=== PATIENT | male | born 1930 | race Caucasian/White ===

== ENCOUNTER 2018-12-05 19:33 | Inpatient (IN) | payer MEDICARE, OTHER ==
[~2018-12-05] VITALS: Ht 180.3 cm; Wt 97.5 kg
[2018-12-05 20:16] LABS: BASO % 0.3 % (0.0-2.0); GRAN # 3.9 (1.4-6.5); GRAN % 66.1 % (42.2-75.2); LYMPH # 1.1 (1.2-3.4); LYMPH % 19.1 % (20.0-51.0); MEAN CELL VOLUME 77 fl (80.0-100.0); MEAN CORPUSCULAR HGB CONC 30 g/dl (33.0-37.0); MEAN PLATELET VOLUME 8.5 fl (7.4-10.4); MONO # 0.6 (0.1-0.6); MONO % 10.1 % (1.7-9.3); PLATELET COUNT 323 K/mm3 (130-400); RED BLOOD COUNT 4.29 M/mm3 (4.20-5.60); REDCELL DISTRIBUTION WIDTH-CV 18.6 % (11.5-14.5)
[2018-12-05 20:25] LABS: HEMATOCRIT 33.2 % (42.0-52.0); HEMOGLOBIN 9.9 g/dl (13.5-18.0); MEAN CORPUSCULAR HEMOGLOBIN 23 pg (27.0-31.0)
[2018-12-05 20:31] LABS: INR 1.4 (0.8-3.0); PROTHROMBIN TIME 15.5 SECONDS (9.7-12.8)
[2018-12-05 20:35] LABS: ALANINE AMINOTRANSFERASE 20 U/L (21-72); ALBUMIN 3.2 gm/dL (3.5-5.0); ALKALINE PHOSPHATASE 137 U/L (50-136); ANION GAP 7 mmol/L (7-16); AST,SGOT 36 U/L (15-37); BILIRUBIN,TOTAL 0.5 mg/dL (0.0-1.0); BLOOD UREA NITROGEN 26 mg/dL (9-20); CALCIUM 8.8 mg/dL (8.4-10.2); CARBON DIOXIDE 23 mmol/L (22-30); CHLORIDE 106 mmol/L (98-107); CREATINE KINASE 83 U/L (55-170); CREATININE, serum 1.25 (0.66-1.25); GLUCOSE 109 mg/dL (74-106); LIPASE 97 U/L (23-300); POTASSIUM 4.5 mmol/L (3.4-5.0); SODIUM 136 mmol/L (137-145); TOTAL PROTEIN 7.3 gm/dL (6.4-8.2)
[2018-12-05 20:44] LABS: TROPONIN-I < 0.012 ng/mL (0.000-0.035)
[2018-12-05] MEDS ORDERED: ANORO IH (22:10)
[2018-12-05] MEDS ORDERED: HCTZ12.5TAB PO (22:10)
[2018-12-05] MEDS ORDERED: PRILOSEC 20MG20 MG PO (22:10)
[2018-12-05] MEDS ORDERED: MIRALAX PA17 GM/Dose PO (22:18)
[2018-12-05] MEDS ORDERED: HCTZ 25MG TAB25 MG PO (22:18)
[2018-12-05] MEDS ORDERED: MULTIPLE VITAMI1 CAP PO (22:19)
[2018-12-05] MEDS ORDERED: ZYPREXA15 MG PO (22:19)
[2018-12-05] MEDS ORDERED: CEPHALEXIN500 M1 PO (22:19)
[2018-12-05] MEDS ORDERED: KAPSPARGO SPRIN25 MG PO (22:21)
--- NOTE | 2018-12-05 23:30 | NUR ---
Pt arrived to room 319, transferred per stretcher by PACU staff. Pt sleepy but easy to wake, a&o c occasional confused statements. O2 4L per OM. INT patent. Daughters at bedside. Pt/da's oriented to room, unit policies et current POC. Questions invited et answered, all verbalize understanding. No needs at this time, will continue c admit process. Terri OTERO at bedside.
[2018-12-05] MEDS ORDERED: ARNUITY IH (23:53)
[2018-12-05] MEDS ORDERED: ASPIRIN 81M81 MG/TA2 PO (23:55)
[2018-12-05 23:56] LABS: ARTERIAL BLD GAS O2 SATURATION 93.4 % (92-100); ARTERIAL BLD GAS TCO2 CT 23.8; ARTERIAL BLOOD GAS BASE EXCESS -2.1 (-2-2); ARTERIAL BLOOD GAS HCO3 22.6 meq/L (22-26); ARTERIAL BLOOD GAS PCO2 38.8 mmHg (35-45); ARTERIAL BLOOD GAS PO2 72.3 mmHg (80-100); ARTERIAL BLOOD GAS pH 7.38 (7.35-7.45)
[2018-12-05] MEDS ORDERED: TOPROL XL 25MG25 MG PO (23:57)
[2018-12-06] MEDS ORDERED: TYLENOL SU650 MG/SUP RC (00:02)
[2018-12-06] MEDS ORDERED: DULCOLAX S10 MG/SUPP RC (00:03)
[2018-12-06] MEDS ORDERED: IMODIUM 2MG CAPS2 MG PO (00:04)
[2018-12-06] MEDS ORDERED: MILK OF MA400 MG/52 PO (00:04)
[2018-12-06] MEDS ORDERED: IPRATROPIUM BROM3 M1 IH (00:04)
[2018-12-06] MEDS ORDERED: TYLENOL 325MG325 MG PO (00:05)
[2018-12-06] MEDS ORDERED: ALMACONE 360 M360 ML PO (00:05)
[2018-12-06 00:55] VITALS: BP 142/63; PULSE 94
[2018-12-06 03:30] VITALS: BP 130/56; PULSE 98; TEMP 100.1
[2018-12-06 08:22] LABS: BASO % 0.2 % (0.0-2.0); GRAN # 7.3 (1.4-6.5); GRAN % 82.3 % (42.2-75.2); LYMPH # 0.9 (1.2-3.4); LYMPH % 10.6 % (20.0-51.0); MEAN CELL VOLUME 79 fl (80.0-100.0); MEAN CORPUSCULAR HGB CONC 30 g/dl (33.0-37.0); MONO # 0.5 (0.1-0.6); MONO % 5.5 % (1.7-9.3); PLATELET COUNT 297 K/mm3 (130-400); RED BLOOD COUNT 3.78 M/mm3 (4.20-5.60); REDCELL DISTRIBUTION WIDTH-CV 18.6 % (11.5-14.5)
[2018-12-06 08:24] LABS: HEMATOCRIT 29.8 % (42.0-52.0); HEMOGLOBIN 8.8 g/dl (13.5-18.0); MEAN CORPUSCULAR HEMOGLOBIN 23 pg (27.0-31.0)
[2018-12-06 08:41] LABS: ALBUMIN 2.8 gm/dL (3.5-5.0); BILIRUBIN,TOTAL 0.6 mg/dL (0.0-1.0); CALCIUM 8.4 mg/dL (8.4-10.2); CREATININE, serum 1.35 (0.66-1.25); POTASSIUM 4.6 mmol/L (3.4-5.0); TOTAL PROTEIN 6.3 gm/dL (6.4-8.2)
[2018-12-06 08:52] VITALS: BP 136/50; PULSE 78; TEMP 98.2
--- NOTE | 2018-12-06 10:06 | NUR ---
Pt resting in bed with daughter at bedside. Pt given am meds crushed with applesauce and apple juice with miralax. pt swallowed ok but later started to cough when asked pt to deep breathe. Pt only coughed a few times without any production noted. Pt alert but confused at times to place and time. Pt IV intact and no infiltration or redness. Pt BLE edema noted. Pt coccyx ulcer will have dressing change completed today. Pt has call light in reach and denies needs at this time. Pt to have nurse or aide at bedside with eating and drinking. ST saw pt this am with recommendations and will see again at lunch.
[2018-12-06 10:17] LABS: RETIC # 0.07 M/mm3 (0.02-0.16)
[2018-12-06 10:22] LABS: IRON,SERUM 31 ug/dL (35-150)
[2018-12-06 10:31] LABS: TOTAL IRON BINDING CAPACITY 299 ug/dL (261-462)
--- NOTE | 2018-12-06 10:40 | NUR ---
TITO fox met with the patient and the patients daughter, Daya, to discuss discharge planning. The patient lives in [place] alone but yesterday, 12/05, was admitted to [facility] for a skilled stay. The patients daughter reports that she was not happy with the care at [facility] and would prefer [facility]. TITO fox presented and explained the patient choice form. The patients daughter chose [facility]. She did not have a second preference at this time. The patient choice form was signed by daughter and she was provided a copy. TITO contacted and faxed a referral to [facility]. TITO awaiting their screening. TITO to update [facility] and continue to follow.
[2018-12-06 10:58] LABS: FERRITIN 25 ng/mL (18-464)
[2018-12-06 11:18] VITALS: BP 119/52; PULSE 78; TEMP 98.2
--- NOTE | 2018-12-06 12:12 | NUR ---
Initial visit; Patient thanked [employer] for looking in on him and offering God's blessings.
[2018-12-06 16:45] VITALS: BP 125/69; PULSE 79; TEMP 98.4
--- NOTE | 2018-12-06 19:09 | NUR ---
Pt alert and daughters at bedside.Pt dressing change completed per orders. Pt had moderate amount of bright red blood on dressing. Pt repositioned every two hours and incontinent cares provided. Pt able to use urinal in bed. Pt LFA IV infiltrated and new 22g IV started by Jay PARKS in RFA. Pt remains edematous in 3+ in BLE. Pt has call light in reach and denies needs at this time. Morphine managed pain with dressing change well.
[2018-12-06 19:44] VITALS: BP 145/98; PULSE 80; TEMP 98.7
--- NOTE | 2018-12-06 20:17 | NUR ---
Completed medication administration and assessment; PT tolerated all IV medication well; RFA IV intact at time of assessment; coccyx wound with tunneling, clean dry dressing in place; wound care in place; PT alert and able to verbalize concerns, BS audible to lower quad, PT continues to utilize the urinal, PT continue to be NPO; Pending Barium swallow stuady tomorrow; No further assessed or verbalize needs at time of exit; PT able to return to a comfortable position in bed with personal items and call light within reach; Will continue to monitor. CDA
[2018-12-07] VITALS (7 sets, daily range): BP systolic 122–159; BP diastolic 54–78; PULSE 72–86; TEMP 97.9–983
--- NOTE | 2018-12-07 01:43 | NUR ---
PT resting well in bed; No assessed or verbalized concerns at times of rounds; IV ABX completed to RFA IV; Will continue to monitor. CDA
[2018-12-07 06:05] LABS: MEAN CELL VOLUME 79 fl (80.0-100.0); MEAN CORPUSCULAR HGB CONC 29 g/dl (33.0-37.0); MEAN PLATELET VOLUME 8.9 fl (7.4-10.4); PLATELET COUNT 301 K/mm3 (130-400); RED BLOOD COUNT 3.74 M/mm3 (4.20-5.60); REDCELL DISTRIBUTION WIDTH-CV 18.6 % (11.5-14.5)
[2018-12-07 06:09] LABS: HEMATOCRIT 29.6 % (42.0-52.0); HEMOGLOBIN 8.6 g/dl (13.5-18.0); MEAN CORPUSCULAR HEMOGLOBIN 23 pg (27.0-31.0)
[2018-12-07 06:22] LABS: CALCIUM 8.4 mg/dL (8.4-10.2); CREATININE, serum 1.33 (0.66-1.25); POTASSIUM 4.1 mmol/L (3.4-5.0)
--- NOTE | 2018-12-07 06:50 | NUR ---
Report given to CHARLY Oneill; No significant changes or concerns at time of shift change. CDA
[2018-12-07 07:49] LABS: BAND 1 % (0-10); LYMPHOCYTE 13 % (20.0-51.0); NEUTROPHILS 66 % (42.0-75.2); PLATELET ESTIMATE NORMAL (NORMAL)
[2018-12-07 07:50] LABS: HYPOCHROMIA 1+
--- NOTE | 2018-12-07 07:54 | NUR ---
Pt alert and denies pain or SOB at rest. 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 Drsg CDI. Pt repositioned frequently. Pt scheduled for swallow study this am for dysphagia. Pt and family aware. Pt BLE and upper extremities are edematous. Pt has call light in reach and denies needs. Pt IV patent no infiltration or redness noted.
--- NOTE | 2018-12-07 15:50 | NUR ---
TITO contacted and faxed updates to Valente at [facility]. The patient is currently on contact precautions due to possible c. diff. Valente reports that they may not have an isolation room but will get back to TITO. TITO student then contacted and updated the daughter Daya. Daya reports that if [facility] is unable to accept the patient that her second preference would be [facility]. TITO student attempted to contact Christiana at [facility]. TITO student left a voicemail. TITO student to fax over referral and continue to follow.
--- NOTE | 2018-12-07 18:37 | NUR ---
Pt alert and denies pain at this time. Pt ate lunch and no coughing noted and pt sat up for 30min after. Pt has order to collect stool sample but pt has not had any stool since this am. Pt repositioned frequently. Pt IV in RF infiltrated with Clindamycin running. Pt IV discontinued and tip intact. Pt new IV placed in RW. Pt in contact precautions for rule out cdiff. Pt has call light in reach and family at bedside.
--- NOTE | 2018-12-07 19:09 | NUR ---
Pt report given to Linette PARKS.
--- NOTE | 2018-12-08 00:29 | NUR ---
Completed assessment and medication administration; PT tolerated all cares well; PT denies pain at time of assessment; PT Alert with baseline reorientation needed, BS active x4, HRRR, PERRLA, turning and changing schedule, continues to use urinal during evening hours; No further assessed or verbalized concerns at time of exit; PT able to assist into comfortable position in bed with personal items and call light within reach; Will continue to monitor. CDA
--- NOTE | 2018-12-08 01:00 | NUR ---
THIS NURSE TOOK OVER PT CARE AT THIS TIME. PT SLEEPING AT THIS TIME.
[2018-12-08 03:55] VITALS: BP 134/67; PULSE 78; TEMP 98.6
--- NOTE | 2018-12-08 06:00 | NUR ---
PT HAD NO C/O PAIN. APPEARED TO HAVE SLEPT WELL. NO NOTED LOOSE STOOLS. PT TOOK AM PILL THIS MORNING WITHOUT ISSUE.
[2018-12-08 07:06] VITALS: BP 148/65; PULSE 76; TEMP 98.3
--- NOTE | 2018-12-08 07:15 | NUR ---
Report received from CHARLY Loaiza. pT in bed resting, using urinal, wants privacy, will provide and continue to monitor.
[2018-12-08 07:21] LABS: CALCIUM 8.6 mg/dL (8.4-10.2); CREATININE, serum 1.27 (0.66-1.25); POTASSIUM 3.8 mmol/L (3.4-5.0)
[2018-12-08 07:24] LABS: MEAN CELL VOLUME 79 fl (80.0-100.0); MEAN CORPUSCULAR HGB CONC 30 g/dl (33.0-37.0); MEAN PLATELET VOLUME 9.9 fl (7.4-10.4); PLATELET COUNT 278 K/mm3 (130-400); RED BLOOD COUNT 3.87 M/mm3 (4.20-5.60); REDCELL DISTRIBUTION WIDTH-CV 18.7 % (11.5-14.5)
[2018-12-08 07:50] LABS: HEMATOCRIT 30.4 % (42.0-52.0); MEAN CORPUSCULAR HEMOGLOBIN 23 pg (27.0-31.0)
--- NOTE | 2018-12-08 08:43 | NUR ---
Assessment charted. Per [employer], pt ate all breakfast and had no issues with coughing or aspiration. Took am pills all together without issue. Pt doing well, denies pain. O2 at 2L NC. INT to LW. Mepilex on sacrem, ble +2 edema and BUE +1 edema. Will continue to monitor.
[2018-12-08 09:27] LABS: ANISOCYTOSIS 1+; BAND 1 % (0-10); LYMPHOCYTE 28 % (20.0-51.0); MYELOCYTE 2 % (0-0); NEUTROPHILS 61 % (42.0-75.2); PLATELET ESTIMATE NORMAL (NORMAL)
--- NOTE | 2018-12-08 11:04 | NUR ---
Christiana, at [facility], reports that they can accept the patient back for a skilled stay. TITO is still awaiting accept/denial from [facility]. Valente requested the patient's barium swallow notes. TITO faxed those to [facility].
[2018-12-08 11:09] VITALS: BP 120/69; PULSE 74; TEMP 97.5
[2018-12-08] MEDS ORDERED: SEPTRA DS 8001 TAB PO (11:20)
[2018-12-08] MEDS ORDERED: FERROUSAL325 MG PO (11:21)
--- NOTE | 2018-12-08 11:43 | NUR ---
Valente at [facility] reports they can accept the patient. TITO fox contacted the patients daughter to inform. The patient is to discharge today, 12/08, to [facility] for a skilled stay. Transportation was set for 11:45 via [facility]. TITO fox informed the patient and patients daughter. They are both in agreeance. TITO fox presented and explained the IM form to the patient. The patient verbalized understanding and signed. No additional needs at this time.
[2018-12-08 11:49] VITALS: BP 120/69; PULSE 74; TEMP 97.5
--- NOTE | 2018-12-08 12:08 | NUR ---
Pt left at this time via w/c with [facility] staff. Left with all bleongings, IV d/c'd, tip intact. Report called to [facility] nurse who will be resuming care. Criteria met.
== END 2018-12-08 12:09 | DRG 178 ==
LOC: COL.ER 19:33 → MEDICAL 22:45 → SURG 12-06 14:21 → MEDICAL 12-08 12:09
PROVIDERS: Emergency Medicine; Family Medicine; Internal Medicine Gastroenterology; Nurse Practitioner Family; Physician Assistant; ADMIT Internal Medicine
PROC: 0DC58ZZ Extirpation of Matter from Esophagus, Via Natural or Artificial Opening Endoscopic (ICD-10-PCS; 2018-12-05)
PROC: 0D738ZZ Dilation of Lower Esophagus, Via Natural or Artificial Opening Endoscopic (ICD-10-PCS; principal; 2018-12-05 22:50)
DX: J69.0 Pneumonitis due to inhalation of food and vomit (principal); K61.1 Rectal abscess; I13.0 Hypertensive heart and chronic kidney disease with heart failure and stage 1 through stage 4 chronic kidney disease, or unspecified chronic kidney disease; I50.32 Chronic diastolic (congestive) heart failure; N18.9 Chronic kidney disease, unspecified; Z66 Do not resuscitate; J44.9 Chronic obstructive pulmonary disease, unspecified; Z87.891 Personal history of nicotine dependence; K21.9 Gastro-esophageal reflux disease without esophagitis; F32.9 Major depressive disorder, single episode, unspecified; B96.89 Other specified bacterial agents as the cause of diseases classified elsewhere; D50.9 Iron deficiency anemia, unspecified; K22.2 Esophageal obstruction; K31.7 Polyp of stomach and duodenum; K29.30 Chronic superficial gastritis without bleeding; K29.80 Duodenitis without bleeding
CPT/HCPCS: 99223-AI; 99233-AI; 99239; C1726; C9113; J0690; J1650; J2270; J2405; J2543; J2704; J2916; J7030

== ENCOUNTER → 2019-05-16 | Outpatient (CLI) | payer MEDICARE, OTHER ==
[~2019-05-16] MED LIST: ALMACONE 360 M360 ML PO; ANORO IH; ARNUITY IH; ASPIRIN 81M81 MG/TA2 PO; CEPHALEXIN500 M1 PO; DULCOLAX S10 MG/SUPP RC; FERROUSAL325 MG PO; HCTZ 25MG TAB25 MG PO; HCTZ12.5TAB PO; IMODIUM 2MG CAPS2 MG PO; IPRATROPIUM BROM3 M1 IH; KAPSPARGO SPRIN25 MG PO; MILK OF MA400 MG/52 PO; MIRALAX PA17 GM/Dose PO; MULTIPLE VITAMI1 CAP PO; PRILOSEC 20MG20 MG PO; SEPTRA DS 8001 TAB PO; TOPROL XL 25MG25 MG PO; TYLENOL 325MG325 MG PO; TYLENOL SU650 MG/SUP RC; ZYPREXA15 MG PO
== END ==
LOC: BHSO 09:35
DX: F31.81 Bipolar II disorder (principal)